=== PATIENT | male | born 1950 | race Caucasian/White ===

== ENCOUNTER 2019-12-01 14:58 | Emergency (ER) | payer MEDICARE ==
[~2019-12-01] VITALS: Ht 177.8 cm; Wt 89.0 kg
[2019-12-01] MEDS ORDERED: morphine 4 MG/ML inj SYRINge IV ONE (17:45)
[2019-12-01] MEDS ORDERED: ondansetron/PF 4mg/2ml inj IV ONE (17:45)
[2019-12-01 17:57] LABS: BASOPHILS % (AUTO) 0.2 % (0-1); EOSINOPHILS % (AUTO) 0.3 % (0-6); HEMATOCRIT 35.7 % (42.0-52.0); HEMOGLOBIN 11.7 g/dl (14.0-17.9); LYMPHOCYTES # (AUTO) 0.8 X10'3 (1.1-4.8); LYMPHOCYTES % (AUTO) 10.8 % (21-51); MEAN CORPUSCULAR HEMOGLOBIN 27.5 PG (27.0-31.0); MEAN CORPUSCULAR HGB CONC 32.7 g/dL (33.0-36.5); MEAN CORPUSCULAR VOLUME 84.2 FL (78-98); MEAN PLATELET VOLUME 10.7 FL (7.4-10.4); MONOCYTES # (AUTO) 0.6 X10'3 (0-0.9); MONOCYTES % (AUTO) 8.3 % (2-12); NEUTROPHILS # (AUTO) 6.2 X10'3 (1.8-7.7); NEUTROPHILS % (AUTO) 80.4 % (42-75); PLATELET COUNT 75 X10'3 (140-440); RED BLOOD COUNT 4.24 X10'6 (4.70-6.10); RED CELL DISTRIBUTION WIDTH 21.3 % (11.5-14.5); WHITE BLOOD COUNT 7.7 X10'3 (4.5-11.0)
--- NOTE | 2019-12-01 17:58 | NUR ---
pt to xray.
[2019-12-01 18:06] LABS: ALBUMIN 3.5 G/DL (3.4-5.0); ANION GAP 6 (8-16); BILIRUBIN,TOTAL 0.8 MG/DL (0.1-1.0); BLOOD UREA NITROGEN 16 MG/DL (7-18); BUN/CREATININE RATIO 11.5 (5.4-32.0); CALCIUM 9.4 MG/DL (8.5-10.1); CHLORIDE 106 MMOL/L (99-107); CREATININE 1.39 MG/DL (0.60-1.10); GLUCOSE 103 MG/DL (70-104); POTASSIUM 3.3 MMOL/L (3.5-5.1); SODIUM 137 MMOL/L (135-145); TOTAL CARBON DIOXIDE 25.1 MMOL/L (24-32); TOTAL PROTEIN 6.3 G/DL (6.4-8.2); eGFR 51 ML/MIN
[2019-12-01 18:07] LABS: ALANINE AMINOTRANSFERASE 28 U/L (12-78); ALBUMIN/GLOBULIN RATIO 1.3 (1.1-1.5); ALKALINE PHOSPHATASE 71 IU/L (46-116); ASPARTATE AMINO TRANSFERASE 35 U/L (10-37)
[2019-12-01 18:13] LABS: PLATELET ESTIMATE DECREASED
[2019-12-01 18:14] LABS: ANISOCYTOSIS 3+; ELLIPTOCYTES FEW; MICROCYTOSIS 1+; POIKILOCYTOSIS FEW
[2019-12-01] MEDS ORDERED: TETanus/Pertussis (Acell)/Diphther VAC/PF (Tdap-Adult) 0.5ml syringe IMVAC ONE (18:50)
--- NOTE | 2019-12-01 18:55 | NUR ---
Pt. to CT scan.
--- NOTE | 2019-12-01 19:05 | NUR ---
Pt. returned to ED bed [address] scan[address]
[2019-12-01] MEDS ORDERED: HYDR-4383 PO (20:23)
[2019-12-01] MEDS ORDERED: HYDROcodone/acetaminophen 10/325mg tab PO ONE (20:50)
[2019-12-01 21:05] VITALS: BP 124/72
== END 2019-12-01 21:12 | disposition home or self-care (01) ==
LOC: ER 15:00
DX: S80.12XA Contusion of left lower leg, initial encounter (principal); I96 Gangrene, not elsewhere classified; M54.2 Cervicalgia; R51 Headache; Z79.899 Other long term (current) drug therapy; V19.9XXA Pedal cyclist (driver) (passenger) injured in unspecified traffic accident, initial encounter; Y93.89 Activity, other specified; Y92.89 Other specified places as the place of occurrence of the external cause; Y99.8 Other external cause status
CPT/HCPCS: 36415; 72192; 73030; 73502; 80053; 85025; 90471; 90715; 96374; 96375; 99285; J2270; J2405; 85008

== ENCOUNTER 2019-12-06 23:16 | Emergency (ER) | payer MEDICARE ==
[~2019-12-06] VITALS: Ht 177.8 cm; Wt 90.9 kg
[~2019-12-06 23:16] MED LIST: HYDR-4383 PO
--- NOTE | 2019-12-06 23:40 | NUR ---
pt has bruising to his left anterior chest wall and left forearm and left upper outter buttock, left hip, down left leg and foot and right inner thigh.
[2019-12-07 00:30] VITALS: BP 127/81
== END 2019-12-07 00:32 | disposition home or self-care (01) ==
LOC: ER 23:17
DX: S80.12XD Contusion of left lower leg, subsequent encounter (principal); M25.552 Pain in left hip; E11.9 Type 2 diabetes mellitus without complications; Z79.899 Other long term (current) drug therapy; W19.XXXD Unspecified fall, subsequent encounter
CPT/HCPCS: 93971; 99284

== ENCOUNTER 2019-12-17 18:53 | Emergency (ER) | payer MEDICARE ==
[~2019-12-17] VITALS: Ht 175.3 cm; Wt 90.9 kg
[2019-12-17] MEDS ORDERED: HYDROcodone/acetaminophen 5mg/325mg tablet PO ONE (21:55)
[2019-12-17] MEDS ORDERED: ondansetron 4mg rapidly disintigrating tab PO ONE (21:55)
[2019-12-17] MEDS ORDERED: HYDR-3965 PO (23:08)
[2019-12-17 23:15] VITALS: BP 112/68
== END 2019-12-17 23:17 | disposition home or self-care (01) ==
LOC: ER 18:54
DX: S72.002A Fracture of unspecified part of neck of left femur, initial encounter for closed fracture (principal); E11.42 Type 2 diabetes mellitus with diabetic polyneuropathy; Z79.899 Other long term (current) drug therapy; V19.9XXA Pedal cyclist (driver) (passenger) injured in unspecified traffic accident, initial encounter; Y93.89 Activity, other specified; Y92.89 Other specified places as the place of occurrence of the external cause; Y99.8 Other external cause status
CPT/HCPCS: 73610; 73630; 99284

== ENCOUNTER 2022-07-23 15:58 | Emergency (ER) | payer MEDICARE, OTHER ==
[~2022-07-23] VITALS: Ht 175.3 cm; Wt 93.0 kg
[2022-07-23 16:23] VITALS: BP 132/86
== END 2022-07-23 17:20 | disposition home or self-care (01) ==
LOC: ER 15:58
DX: K13.0 Diseases of lips (principal)
CPT/HCPCS: 99281

== ENCOUNTER 2024-05-21 21:57 | Emergency (ER) | payer MEDICARE, OTHER ==
[~2024-05-21] VITALS: Ht 175.3 cm; Wt 95.5 kg
[2024-05-21] MEDS: naloxone 2mg/2ml inj IM ONE (23:16)
[2024-05-22 00:09] LABS: URINE AMPHETAMINE SCREEN NEGATIVE (Neg); URINE BARBITUATE SCREEN NEGATIVE (Neg); URINE BENZODIAZEPINES SCREEN NEGATIVE (Neg); URINE CANNABINOID SCREEN NEGATIVE (Neg); URINE COCAINE SCREEN NEGATIVE (Neg); URINE METHADONE SCREEN NEGATIVE (Neg); URINE OPIATE SCREEN POSITIVE (Neg); URINE PHENCYCLIDINE SCREEN NEGATIVE (Neg)
[2024-05-22 03:20] VITALS: BP 136/72; PULSE 76; RESP 16; TEMP 98.6; O2SAT 96
== END 2024-05-22 03:42 | disposition home or self-care (01) ==
LOC: ER 21:58
DX: C44.41 Basal cell carcinoma of skin of scalp and neck (principal); E11.9 Type 2 diabetes mellitus without complications; F11.129 Opioid abuse with intoxication, unspecified; V89.2XXA Person injured in unspecified motor-vehicle accident, traffic, initial encounter
CPT/HCPCS: 80305; 96372; 99284; J2310